=== PATIENT | male | born 1955 | race Caucasian/White ===

== ENCOUNTER → 2017-02-18 16:06 | Outpatient (CLI) | payer OTHER ==
[2013-03-09 20:52] VITALS: BMI 26.7
[~2017-02-18 16:06] MED LIST: LOPRESSOR50 MG PO; NEXIUM40 MG PO; PEPCID20 MG PO; XARELTO15 MG PO
== END | disposition home or self-care (01) ==
LOC: D.RAD 16:06
DX: R10.13 Epigastric pain (principal)